=== PATIENT | female | born 1965 | race Two or more races ===

== ENCOUNTER 2023-02-05 13:08 | Emergency (ER) | payer OTHER ==
[~2023-02-05] VITALS: Ht 162.6 cm; Wt 54.1 kg
[2023-02-05 13:13] VITALS: TEMP 98
[2023-02-05] MEDS ORDERED: ACET-2080 PO (15:06)
[2023-02-05] MEDS ORDERED: IBUP-1554 PO (15:06)
[2023-02-05] MEDS ORDERED: ACETAMINOPHEN/CODEINE 300-30 MG TABLET PO ONE (15:15)
[2023-02-05] MEDS ORDERED: IBUPROFEN 600 MG TABLET PO ONE (15:15)
[2023-02-05 15:18] VITALS: BP 142/83; PULSE 84; RESP 18
== END 2023-02-05 15:19 | disposition home or self-care (01) ==
LOC: EMS 13:08
DX: S76.911A Strain of unspecified muscles, fascia and tendons at thigh level, right thigh, initial encounter (principal); S83.91XA Sprain of unspecified site of right knee, initial encounter; W01.0XXA Fall on same level from slipping, tripping and stumbling without subsequent striking against object, initial encounter; Y93.89 Activity, other specified; Y92.89 Other specified places as the place of occurrence of the external cause; Y99.8 Other external cause status
CPT/HCPCS: 73502; 99284